=== PATIENT | female | born 1990 ===

== ENCOUNTER 2022-06-16 02:25 | Emergency (ER) | payer OTHER ==
[~2022-06-16] VITALS: Ht 160 cm; Wt 63.5 kg
[~2022-06-16 02:25] MED LIST: FOLIC ACID1 MG; PRENATAL TABLE1 EAC1 PO
[2022-06-16] MEDS ORDERED: ACETAMINOPHEN650 M2 PO (06:40)
== END 2022-06-16 06:45 | disposition home or self-care (01) ==
LOC: ER 02:25
DX: O20.9 Hemorrhage in early pregnancy, unspecified (principal); Z3A.01 Less than 8 weeks gestation of pregnancy

== ENCOUNTER 2022-07-25 13:22 | Outpatient (CLI) | payer OTHER ==
[~2022-07-25 13:22] MED LIST changes: +ACETAMINOPHEN650 M2 PO
== END 2022-07-25 14:55 | disposition home or self-care (01) ==
LOC: PRENATAL 13:22
PROVIDERS: ATTEND Obstetrics & Gynecology Maternal & Fetal Medicine
DX: O36.80X0 Pregnancy with inconclusive fetal viability, not applicable or unspecified (principal); Z36.0 Encounter for antenatal screening for chromosomal anomalies; Z3A.12 12 weeks gestation of pregnancy

== ENCOUNTER 2023-01-17 13:30 | Inpatient (IN) | payer OTHER ==
[~2023-01-17] VITALS: Ht 160 cm; Wt 72.6 kg
== END 2023-01-28 14:13 | disposition home or self-care (01) | DRG 807 ==
LOC: LDR 01-26 10:27 → OB/GYN 01-26 15:55
PROVIDERS: ADMIT Student in an Organized Health Care Education/Training Program; ATTEND Student in an Organized Health Care Education/Training Program
PROC: 10E0XZZ Delivery of Products of Conception, External Approach (ICD-10-PCS; principal; 2023-01-26)
PROC: 0KQM0ZZ Repair Perineum Muscle, Open Approach (ICD-10-PCS; 2023-01-26)
PROC: 4A1HXCZ Monitoring of Products of Conception, Cardiac Rate, External Approach (ICD-10-PCS; 2023-01-26)
DX: O70.1 Second degree perineal laceration during delivery (principal); Z37.0 Single live birth; Z3A.39 39 weeks gestation of pregnancy; Z20.822 Contact with and (suspected) exposure to COVID-19